=== PATIENT | female | born 1980 | race Caucasian/White ===

== ENCOUNTER 2019-02-09 07:11 | Inpatient (IN) | payer MEDICAID ==
[2019-02-09] MEDS ORDERED: BUTORPHANOL 2 MG INJ IV (08:30)
[2019-02-09] MEDS ORDERED: CARBOPROST 250 MCG INJ IM (08:30)
[2019-02-09] MEDS ORDERED: LIDOCAINE 1% (MPF) 30 ML INJ INJ (08:30)
[2019-02-09] MEDS ORDERED: MISOPROSTOL 200 MCG TAB PR (08:30)
[2019-02-09] MEDS ORDERED: IBUPROFEN 600 MG TAB PO (08:30)
[2019-02-09] MEDS ORDERED: OXYTOCIN 30 UNITS/LR 500 ML IV ×2 (08:30)
[2019-02-09] MEDS ORDERED: METHYLERGONOVINE 0.2 MG INJ IM (08:30)
[2019-02-09 09:21] LABS: ADD MAN DIFF? NO
[2019-02-09 09:23] LABS: BASOPHILS % 0.3 % (0.0-2.0); EOSINOPHILS # 0.2 10^3/ul (0.0-0.5); EOSINOPHILS % 1.1 % (0.0-7.0); HEMATOCRIT 34.9 % (37.0-47.0); HEMOGLOBIN 11.5 g/dl (12.0-16.0); LYMPHOCYTES # 2.2 10^3/ul (0.8-2.9); LYMPHOCYTES % 16.2 % (15.0-51.0); MEAN CORPUSCULAR HEMOGLOBIN 29.1 pg (29.0-33.0); MEAN CORPUSCULAR VOLUME 88.4 fl (82.0-101.0); MEAN PLATELET VOLUME 9.8 fl (7.4-10.4); MONOCYTE # 1.3 10^3/ul (0.3-0.9); MONOCYTES % 9.3 % (0.0-11.0); NEUTROPHIL # 9.7 10^3/ul (1.6-7.5); NEUTROPHILS % 72.4 % (39.0-77.0); PLATELET COUNT 262 10^3/UL (140-415); RED BLOOD COUNT 3.95 10^6/ul (4.20-5.40); RED CELL DISTRIBUTION WIDTH 12.9 % (11.5-14.5)
[2019-02-09 09:23] LABS: WHITE BLOOD COUNT 13.4 10^3/ul (4.8-10.8)
[2019-02-09 09:53] LABS: INR 0.92; PROTIME 12.5 Sec (11.9-14.9)
[2019-02-09 09:54] LABS: PARTIAL THROMBOPLASTIN TIME 27.2 Sec (23.0-35.0)
[2019-02-09] MEDS: LACTATED RINGER'S 1,000 ML IV ×4 (10:00→22:35)
[2019-02-09] MEDS: MISOPROSTOL 50 MCG CAPSULE PO (11:10)
[2019-02-09] MEDS: AMPICILLIN 2 GM/NS (PMX) 100 ML IV (11:10)
[2019-02-09] MEDS: DEXTROSE 5%-LR 1,000 ML IV ×2 (12:59→22:31)
[2019-02-09] MEDS ORDERED: ACCU-CHEK XX (13:30)
[2019-02-09] MEDS: AMPICILLIN 1 GM/NS (PMX) 50 ML IV ×3 (15:00→22:59)
[2019-02-09 16:45] LABS: RAPID PLASMA REAGIN NONREACTIVE (NR)
[2019-02-09 20:58] LABS: HEPATITIS B SURFACE ANTIGEN NEGATIVE (NEGATIVE)
[2019-02-09] MEDS: OXYTOCIN 30 UNITS/LR 500 ML IV (22:54)
[2019-02-10] MEDS: LACTATED RINGER'S 1,000 ML IV ×2 (00:04→04:56)
[2019-02-10] MEDS: AMPICILLIN 1 GM/NS (PMX) 50 ML IV (03:22)
[2019-02-10] MEDS ORDERED: DIPHENHYDRAMINE 50 MG INJ IV (04:00)
[2019-02-10] MEDS ORDERED: NALOXONE (0.4 MG/ML) INJ IV (04:00)
[2019-02-10] MEDS ORDERED: ONDANSETRON 4 MG INJ IV (04:00)
[2019-02-10] MEDS ORDERED: FENTAnyl 2MCG/ML-ROPIV 0.2% 100 ML BAG EPI (04:00)
[2019-02-10] MEDS ORDERED: FENTAnyl 2MCG/ML-ROPIV 0.2% 100 ML (04:06)
[2019-02-10] MEDS: OXYTOCIN 30 UNITS/LR 500 ML IV (08:01)
[2019-02-10] MEDS: LACTATED RINGER'S 1,000 ML IV* ×2 (09:43→17:43)
[2019-02-10] MEDS ORDERED: DIBUCAINE 1% 30 GM OINT TOP (10:00)
[2019-02-10] MEDS ORDERED: ACETAMINOPHEN 325 MG TAB PO (10:00)
[2019-02-10] MEDS ORDERED: OXYTOCIN 30 UNITS/LR 500 ML IV (10:00)
[2019-02-10] MEDS ORDERED: METHYLERGONOVINE 0.2 MG INJ IM (10:00)
[2019-02-10] MEDS ORDERED: CARBOPROST 250 MCG INJ IM (10:00)
[2019-02-10] MEDS ORDERED: HYDROCODONE/APAP (5/325) TAB PO (10:00)
[2019-02-10] MEDS ORDERED: MISOPROSTOL 200 MCG TAB PR (10:00)
[2019-02-10] MEDS: WITCH HAZEL/GLYCERIN PAD PR (10:35)
[2019-02-10] MEDS: BENZOCAINE 20% 56 ML SPRAY TOP (10:35)
[2019-02-10] MEDS: IBUPROFEN 600 MG TAB PO ×3 (12:00→23:54)
[2019-02-10] MEDS: SENNA/DOCUSATE NA (8.6MG/50MG) TAB PO (23:54)
[2019-02-11] MEDS: IBUPROFEN 600 MG TAB PO ×3 (05:51→17:50)
[2019-02-11 08:01] LABS: ADD MAN DIFF? NO
[2019-02-11 08:06] LABS: BASOPHILS % 0.2 % (0.0-2.0); EOSINOPHILS # 0.1 10^3/ul (0.0-0.5); EOSINOPHILS % 1.1 % (0.0-7.0); HEMATOCRIT 29.1 % (37.0-47.0); HEMOGLOBIN 9.6 g/dl (12.0-16.0); LYMPHOCYTES # 2.6 10^3/ul (0.8-2.9); LYMPHOCYTES % 22.7 % (15.0-51.0); MEAN CORPUSCULAR HEMOGLOBIN 29.3 pg (29.0-33.0); MEAN CORPUSCULAR VOLUME 88.7 fl (82.0-101.0); MEAN PLATELET VOLUME 9.6 fl (7.4-10.4); MONOCYTE # 1.2 10^3/ul (0.3-0.9); NEUTROPHIL # 7.6 10^3/ul (1.6-7.5); NEUTROPHILS % 65.4 % (39.0-77.0); PLATELET COUNT 215 10^3/UL (140-415); RED BLOOD COUNT 3.28 10^6/ul (4.20-5.40)
[2019-02-11 08:06] LABS: WHITE BLOOD COUNT 11.6 10^3/ul (4.8-10.8)
[2019-02-11] MEDS: SENNA/DOCUSATE NA (8.6MG/50MG) TAB PO ×2 (09:35→21:00)
[2019-02-12] MEDS: IBUPROFEN 600 MG TAB PO ×3 (00:32→12:12)
[2019-02-12] MEDS: DIPHTH/TET/ACEL PERTUSS (ADULT) 0.5 ML VIAL IM* (09:56)
[2019-02-12] MEDS: SENNA/DOCUSATE NA (8.6MG/50MG) TAB PO (09:56)
== END 2019-02-12 15:30 | disposition home or self-care (01) | DRG 807 ==
LOC: L-D 07:11 → PP1 02-10 09:56
PROVIDERS: Obstetrics & Gynecology
PROC: 3E033VJ Introduction of Other Hormone into Peripheral Vein, Percutaneous Approach (ICD-10-PCS; 2019-02-09 08:00)
DX: O24.429 Gestational diabetes mellitus in childbirth, unspecified control (principal); Z37.0 Single live birth; Z3A.40 40 weeks gestation of pregnancy
CPT/HCPCS: 62319; 76815; 82962; 85025; 85610; 85730; 86592; 86850; 86900; 86901; 87340

== ENCOUNTER 2019-02-15 20:28 | Emergency (ER) | payer SELFPAY, MEDICAID | END 2019-02-16 02:36 | disposition left against medical advice (07) | LOC: FTE 20:28 | DX: Z53.21 Procedure and treatment not carried out due to patient leaving prior to being seen by health care provider (principal) ==

== ENCOUNTER 2019-02-18 15:41 | Emergency (ER) | payer MEDICAID ==
[2019-02-18] MEDS: IBUPROFEN 600 MG TAB PO (17:03)
[2019-02-18] MEDS: SODIUM CHLORIDE 0.9% 1L BAG IV* (17:03)
[2019-02-18 17:15] LABS: ADD MAN DIFF? NO
[2019-02-18 17:17] LABS: WHITE BLOOD COUNT 23.3 10^3/ul (4.8-10.8)
[2019-02-18 17:17] LABS: ABNORMAL IP MESSAGE 1; BASOPHIL # 0.1 10^3/ul (0.0-0.1); BASOPHILS % 0.3 % (0.0-2.0); EOSINOPHILS % 0.2 % (0.0-7.0); HEMATOCRIT 42.5 % (37.0-47.0); HEMOGLOBIN 13.8 g/dl (12.0-16.0); LYMPHOCYTES # 1.2 10^3/ul (0.8-2.9); MEAN CORPUSCULAR HEMOGLOBIN 28.5 pg (29.0-33.0); MEAN CORPUSCULAR HGB CONC 32.5 g/dl (32.0-37.0); MEAN CORPUSCULAR VOLUME 87.6 fl (82.0-101.0); MEAN PLATELET VOLUME 9.2 fl (7.4-10.4); MONOCYTE # 1.3 10^3/ul (0.3-0.9); MONOCYTES % 5.7 % (0.0-11.0); NEUTROPHIL # 20.5 10^3/ul (1.6-7.5); NEUTROPHILS % 87.6 % (39.0-77.0); PLATELET COUNT 311 10^3/UL (140-415); RED BLOOD COUNT 4.85 10^6/ul (4.20-5.40)
[2019-02-18 17:23] LABS: POSITIVE DIFF @See below
[2019-02-18 17:30] LABS: ADD UMIC YES; UR ASCORBIC ACID NEGATIVE (NEGATIVE); UR BILIRUBIN (Dip) NEGATIVE (NEGATIVE); UR BLOOD (Dip) 3+ mg/dL (NEGATIVE); UR CLARITY SLIGHTLY CLOUDY (CLEAR); UR COLOR AMBER (YELLOW); UR GLUCOSE (Dip) NEGATIVE (NEGATIVE); UR KETONES (Dip) NEGATIVE (NEGATIVE); UR LEUKOCYTE ESTERASE (Dip) 1+ Leu/ul (NEGATIVE); UR MUCUS MODERATE /HPF (NONE SEEN); UR NITRITE (Dip) NEGATIVE (NEGATIVE); UR RBC > 182 /HPF (0-5); UR SPECIFIC GRAVITY (Dip) 1.025 (1.003-1.030); UR SQUAMOUS EPITHELIAL CELL MODERATE /HPF (FEW); UR TOTAL PROTEIN (Dip) 1+ mg/dl (NEGATIVE); UR UROBILINOGEN (Dip) NEGATIVE (NEGATIVE); UR WBC 39 /HPF (0-5)
[2019-02-18 17:33] LABS: LACTIC ACID 1.4 mmol/L (0.5-2.0)
[2019-02-18 17:35] LABS: ALANINE AMINOTRANSFERASE 21 IU/L (13-69); ALBUMIN 4.2 g/dl (3.3-4.9); ALBUMIN/GLOBULIN RATIO 1.13; ALKALINE PHOSPHATASE 94 IU/L (42-121); ANION GAP 11 (5-13); ASPARTATE AMINO TRANSFERASE 24 IU/L (15-46); BILIRUBIN,INDIRECT 0.6 mg/dl (0-1.1); BILIRUBIN,TOTAL 0.6 mg/dl (0.2-1.3); BLOOD UREA NITROGEN 13 mg/dl (7-20); CALCIUM 9.5 mg/dl (8.4-10.2); CARBON DIOXIDE 25 mmol/L (21-31); CHLORIDE 101 mmol/L (97-110); CREATININE 0.56 mg/dl (0.44-1.00); Estimated GFR > 60 mL/min (>60); GLUCOSE 90 mg/dl (70-220); LIPASE 41 U/L (23-300); POTASSIUM 4.1 mmol/L (3.5-5.1); SODIUM 137 mmol/L (135-144); TOTAL PROTEIN 7.9 g/dl (6.1-8.1)
[2019-02-18] MEDS: CEFTRIAXONE 1 GM/50 ML (PMX) 50 ML IVPB (18:56)
== END 2019-02-18 20:05 | disposition home or self-care (01) ==
LOC: E/R 20:05
DX: O86.20 Urinary tract infection following delivery, unspecified (principal); B96.89 Other specified bacterial agents as the cause of diseases classified elsewhere; R07.9 Chest pain, unspecified
CPT/HCPCS: 36415; 71045; 76856; 80053; 81001; 83605; 83690; 85025; 87040; 87086; 93005; 96374; 99285-25